=== PATIENT | female | born 1990 | race Caucasian/White ===

== ENCOUNTER 2023-06-28 10:40 | Emergency (ER) | payer BC, SELFPAY ==
[2023-06-28 10:43] VITALS: BP 125/76
--- NOTE | 2023-06-28 11:17 | ED.GENMED ---
History of Present Illness
General
Chief Complaint: Headache
Source: patient
Exam Limitations: none
Time Seen by Provider: 06/28/23 11:16
Nursing documentation reviewed up to this point in time: agreed with
Travel History
Have you had any contact with someone who has COVID-19?: No
Do you have any symptoms of coronavirus? Fever > 100 degrees, chills, cough, shortness of breath, sore throat, loss of taste or smell, muscle aches, or headache?: No
History of Present Illness
History of Present Illness:
33-year-old female with history of IDDM type I, hypothyroidism presents stating she awakened around 7 AM with a gradually increasing left side frontal headache which is now 8/10. She initially had blurry vision in her right eye but this has
subsided, she is nauseous and has been vomiting, last emesis was 10 minutes ago. She denies fever or chills, denies recent head trauma. She is not anticoagulated. She took Excedrin at 7:30 AM ibuprofen at 9 AM but vomited after each 1.
She has an insulin pump. Her blood sugar at this time is 187.
Her medications include the insulin pump
Synthroid 175 mcg daily
Started Wegovy 3 months ago, last injection 6 days ago.
Past History
Past History
ED Past Medical History: IDDM and Hypothyroidism
ED Past Surgical History: Appendectomy and
Social History
Tobacco: Non-smoker
Alcohol: Occasional
Personal:
Living: with family
Employment: Employed
Review of Systems
Review of Systems
Allergies reviewed?: Yes
All Other Systems: ROS reviewed and negative except as documented in HPI and ROS
Constitutional: Denies fever
EENT: Reports other (initially spot of blurred vision right eye this has subsided)
Respiratory: Denies trouble breathing
Cardiac: Denies chest pain
ABD/GI: Reports nausea and vomiting; Denies abdominal pain or diarrhea
: Reports no symptoms
Musculoskeletal: Reports no symptoms
Skin: Reports no symptoms
Neurological: Reports headache; Denies dizzy, weakness or numbness
Phy Exam
General Physical Exam
General Presentation: mild distress
General age: appears stated age
General Skin: warm and dry
General Habitus: normal
General Mental: alert
General Hydration: appears well hydrated
ENT Exam
ENT Exam: TM's normal, pharynx normal and neck supple
Eye Exam
Eye Exam: PERRL, cornea clear and conjunctiva normal
Cardiovascular Exam
Cardiovascular Exam: regular rate/rhythm and no murmur
Heart Sounds: normal
Pulmonary Exam
Pulmonary Exam: lungs clear
Gastrointestinal Exam
Gastrointestinal Exam: non tender and soft
Neurological Exam
Neurological Exam: oriented x3, CN II-XII intact, no motor deficits, speech normal, cerebellum intact and normal gait
Musculoskeletal Exam
Musculoskeletal Exam: neuro vasc intact
Skin Exam
Skin Exam: normal color and warm/dry
Psychiatric Exam
Psychiatric Exam: normal mood/affect
Course
Orders/Labs/Results
Orders:
Orders
06/28/23 11:23
IV Insert/Care/Rem.- Treatment PRN
0.9% Sodium Chloride 1000 ml [Nss] 1,000 ml IV BOLUS
Diphenhydramine [Benadryl] 50 mg IV NOW STA
Ketorolac [Toradol] 15 mg IV NOW STA
Ondansetron Injectable [Zofran] 4 mg IV NOW STA
Prochlorperazine [Compazine] 10 mg IV NOW STA
06/28/23 12:45
CT Head W/o Iv Contrast Urgent
Comment:
Reason For Exam: Left frontal h/a 'worst ever'
Vital Signs
Initial and Last Documented VS:
Initial Vital Signs
Temp Pulse Resp BP Pulse Ox
98.1 F 72 18 125/76 99
06/28/23 10:43 06/28/23 10:43 06/28/23 10:43 06/28/23 10:43 06/28/23 10:43
Last Documented Vital Signs
Temp Pulse Resp BP Pulse Ox
98.1 F 86 18 111/62 99
06/28/23 10:43 06/28/23 14:43 06/28/23 14:43 06/28/23 14:43 06/28/23 14:43
MDM/Problems Addressed
Differential Diagnosis Includes:
Migraine, tension h/a, ICB
MDM/Problems Addressed:
33-year-old female with history of IDDM type I, hypothyroidism presents stating she awakened around 7 AM with a gradually increasing left side frontal headache which is now 8/10. She initially had blurry vision in her right eye but this has
subsided, she is nauseous and has been vomiting, last emesis was 10 minutes ago. She denies fever or chills, denies recent head trauma. She is not anticoagulated. She took Excedrin at 7:30 AM ibuprofen at 9 AM but vomited after each 1.
She has an insulin pump. Her blood sugar at this time is 187.
Her medications include the insulin pump
Synthroid 175 mcg daily
Started Wegovy 3 months ago, last injection 6 days ago.
06/28/2023 1245 PM
In to reevaluate patient, she states her pain is down to 3/10. Feels dizzy, requesting head CT
06/28/[address] normal
Patient states she is feeling better, wants to go home.
Patient ambulated out with steady gait upon discharge
*Critical Care Note
Total Time (30-74mins, 75-104mins- exclusive of procedures): Not Applicable
ED Attending Note
-
Portions of this chart may have been created with voice recognition software.� Occasional wrong word or��sound alike� substitutions may have occurred due to the inherent limitations of voice recognition software.
Discharge Plan
Departure
Patient Disposition: Home (Routine Discharge)
Date of Disposition: 06/28/23
Time of Disposition: 14:40
Patient with high blood pressure during this ER visit?: No
Condition: Good
Discharge Problem:
Headache
Instructions: Migraines (DC), Headache, Adult (DC)
Prescriptions:
New
ondansetron 4 mg tablet,disintegrating
4 mg PO Q8H PRN (Reason: nausea and vomiting) 7 Days Qty: 14 0RF
No Action
hydrocodone-acetaminophen [Vicodin] 1 EACH tablet
1 ea PO Q6HPRN PRN (Reason: pain) Qty: 20 0RF
Referrals:
Hanna Pearson MD [Active] - As needed
Carlos Mendoza MD [Family Provider] - As needed
Activity Restrictions/Additional Instructions:
As we discussed, Tylenol or ibuprofen as needed for headache
See your doctor if your headaches persist
I have provided you with the name of a neurologist for follow-up if needed.
I sent a prescription to your pharmacy for Zofran to use as needed for nausea
Interventions
Interventions:
*Risk Screen - Suicide Last Done: 06/28/23 14:47
*General Assessment Last Done: 06/28/23 14:47
*Neglect/Abuse Screening Last Done: 06/28/23 14:47
ED- Fall Risk Assessment Last Done: 06/28/23 14:47
*ED COVID-19 Vaccine History Last Done: 06/28/23 14:47
*Nursing Disposition Last Done: 06/28/23 14:47
ED- Neurological Assessment Last Done: 06/28/23 12:20
Discharge Date and Time
Discharge Date/Time: 06/28/23 14:48
[2023-06-28] MEDS: NSS 1000 IV (12:23)
[2023-06-28] MEDS: BENADRYL 50 MG IV (12:24)
[2023-06-28] MEDS: COMPAZINE 10 MG IV (12:24)
[2023-06-28] MEDS: TORADOL 15 MG IV (12:24)
[2023-06-28] MEDS: ZOFRAN 4 MG IV (12:24)
[2023-06-28 14:43] VITALS: BP 111/62
== END 2023-06-28 14:48 | disposition home or self-care (01) ==
LOC: EMR 10:40
PROVIDERS: EMERGENCY PHYSICIAN Emergency Medicine; FAMILY PHYSICIAN Family Medicine
DX: R51.9 Headache, unspecified (principal); R42 Dizziness and giddiness; R11.2 Nausea with vomiting, unspecified; H53.8 Other visual disturbances; E10.9 Type 1 diabetes mellitus without complications; E03.9 Hypothyroidism, unspecified; Z79.4 Long term (current) use of insulin; Z96.41 Presence of insulin pump (external) (internal)
CPT/HCPCS: 99284; 96374; 96375 ×3; 96361; 70450